=== PATIENT | female | born 1985 | race Caucasian/White ===

== ENCOUNTER 2018-07-29 12:12 | Inpatient (IN) | payer SELFPAY ==
[~2018-07-29] VITALS: Ht 180.3 cm; Wt 101.2 kg
--- NOTE | 2018-07-29 01:04 | NUR ---
BF AT THIS TIME. DENIES NEEDS AND PAIN AT THIS TIME. ICE PACK OFFER FOR PERINUEM, REFUSES AT THIS TIME. SIGNIFICANT OTHER AT BEDSIDE, SUPPORTIVE AND ATTENTIVE TO PT AND INFANT NEEDS. BED IN LOW POSITION WITH UPPER SIDE RAILS RAISED X2. CALL LIGHT AND PHONE WITHIN REACH. WILL CONTINUE TO MONITOR AND ASSIST PRN.
[2018-07-29] MEDS ORDERED: BENADRYL25 MG PO (12:53)
[2018-07-29 12:54] VITALS: BP 115/73; Ht 180.3 cm; Wt 101.2 kg
[2018-07-29 14:17] LABS: HEMATOCRIT 33.1 % (36.0-48.0); HEMOGLOBIN 11.6 g/dL (12-16); MCH 32.2 pg (26.0-34.0); MCV 91.9 fL (80.0-100.0); MEAN PLATELET VOLUME 9.5 fL (7.4-10.4); RBC 3.6 10x6/uL (4.00-5.40); RDW 13.5 % (11.5-14.5); WBC 10.4 10x3/uL (4.8-10.8)
--- NOTE | 2018-07-29 22:20 | NUR ---
CALLS VIA CL, STATES THAT SHE NEEDS TO VOID. EPIDURAL CATH UNHOOKED FROM PUMP AND STERILE CAP APPLIED. FULL ROM OF BLE NOTED, PT ABLE TO PLANT FEET ON BED AND PUSH BUTTOCKS OFF OF BED. PIV TO R WRIST SL. SAT ON EDGE OF BED WITH NO C/O DIZZINESS. STOOD AT BEDSIDE WITH NO C/O DIZZINESS. STEADY GAIT NOTED. AMBULATED WITH STANDBY ASSIST TO BATHROOM, VOIDED 900 MLS IN HAT, NO CLOTS NOTED. INSTRUCTED ON PERICARE USING BOTTLE WITH BETADINE RINSE. INSTRUCTED ON USE OF TUX PADS AND DERMAPLAST WITH UNDERSTANDING DEMONSTRATED. PANTIES AND PADS PROVIDED. LINEN AND GOWN CHANGED. BACK TO BED. SANDWICH TRAY PROVIDED PER PT REQUEST. DENIES ADDITIONAL NEEDS. SIGNIFICANT OTHER AT BEDSIDE, SUPPORTIVE AND ATTENTIVE TO PT AND HER NEEDS. BED PLACED IN LOW POSITION WITH UPPER SIDE RAILS RAISED X2. CALL LIGHT AND PHONE WITHIN REACH. WILL CONTINUE TO MONITOR AND ASSIST PRN.
--- NOTE | 2018-07-29 23:50 | NUR ---
C/O PAIN 3/10 CONSTANT PERINEAL PRESSURE. MOTRIN GIVEN PER ORDER. ICE WATER PROVIDED, PT INSTRUCTED ON MED. REINFORCED WITH PT THAT [place] FOR [place]ANNED BTL IN THE A.M. VERBALIZED UNDERSTANDING. VOIDED 750 MLS YELLOW URINE IN HAT, 2 QUARTER SIZED CLOTS NOTED. PERICARE DONE PER PT, GOWN CHANGED. LABOR BED OUT OF ROOM AND REGULAR BED PLACED IN ROOM. DENIES ADDITIONAL NEEDS. BED IN LOW POSITION WITH UPPER SIDE RAILS RAISED X2. CALL LIGHT AND PHONE WITHIN REACH. WILL CONTINUE TO MONITOR AND ASSIST PRN.
[2018-07-30] VITALS (12 sets, daily range): BP systolic 103–135; BP diastolic 56–76
--- NOTE | 2018-07-30 00:25 | NUR ---
PAIN REASSESSMENT COMPLETED. DENIES PAIN AT THIS TIME. REQUESTED UPDATE ON STATUS. NBN CALLED FROM ROOM, PT UPDATED ON INFANT. INSTRUCTED PT AND SIGNIFICANT OTHER ON CALLING NBN FROM ROOM PHONE, VERBALIZE UNDERSTANDING.
--- NOTE | 2018-07-30 02:18 | NUR ---
PT. AND ASKING FOR PAIN MED FOR ABD. CRAMPING. INFORMED OF TIME THAT MOTRIN WAS GIVEN AND WHEN IT WAS DUE AGAIN. INQUIRED IF PT. DESIRED A WARM BLANKET FOR HER ABD. PT. AGREEABLE. SAME DONE.
--- NOTE | 2018-07-30 03:15 | NUR ---
BONDING WITH INFANT. REPORTS THAT WARM BLANKET HELPED CRAMPING. DENIES NEEDS AT THIS TIME. BED IN LOW POSITION WITH UPPER SIDE RAILS RAISED X2. CALL LIGHT AND PHONE WITHIN REACH. WILL CONTINUE TO MONITOR AND ASSIST PRN.
--- NOTE | 2018-07-30 04:13 | NUR ---
ROUNDS MADE. PT GETTING BACK IN BED, STATES THAT SHE HAS BEEN TO THE BATHROOM. DENIES DIFFICULTY VOIDING. DENIES NEEDS. BED IN LOW POSITION WITH UPPER SIDE RAILS RAISED X2. CALL LIGHT AND PHONE WITHIN REACH. WILL CONTINUE TO MONITOR.
--- NOTE | 2018-07-30 05:09 | NUR ---
RESTING WITH EYES CLOSED IN SEMI FOWLERS POSITION. RESPIRATIONS REGULAR AND UNLABORED, NO S/S OF DISTRESS NOTED. BED IN LOW POSITION WITH UPPER SIDE RAILS RAISED X2. CALL LIGHT AND PHONE WITHIN REACH.
[2018-07-30 06:34] LABS: BASOPHILS 0.1 % (0-2); EOSINOPHILS 0.5 % (0-7); HEMATOCRIT 31.5 % (36.0-48.0); HEMOGLOBIN 10.9 g/dL (12-16); IMMATURE GRANULOCYTES 0.5 % (0-5); LYMPHOCYTES 20.1 % (15-50); MCH 31.6 pg (26.0-34.0); MCHC 34.6 g/dL (31.0-37.0); MCV 91.3 fL (80.0-100.0); MEAN PLATELET VOLUME 9.8 fL (7.4-10.4); MONOCYTES 6.7 % (2-11); NEUTROPHILS 72.1 % (40-80); PLATELET COUNT 195 10x3/uL (130-400); RBC 3.45 10x6/uL (4.00-5.40); RDW 13.4 % (11.5-14.5)
[2018-07-30 06:38] LABS: WBC 13.8 10x3/uL (4.8-10.8)
--- NOTE | 2018-07-30 07:00 | NUR ---
SBAR HANDOFF RECEIVED FROM KERVIN LOWRY RN.
--- NOTE | 2018-07-30 07:50 | NUR ---
VSS. SUPINE IN BED AFTER VOIDING AT 0746. SKIN WARM DRY AND PINK. FUNDUS FIRM AT UMBILICUS; RUBRA LOCHIA LIGHT. DENIES PASSAGE OF CLOTS VAGINALLY. RIGGS. ALERT/ORIENTED X 4. DENIES DIFFICULTY VOIDING. TO OR PER BED, ACCOMPANIED BY O.R. PERSONNEL. RIGHT WRIST SALINE LOCK INTACT WITHOUT SIGNS OF COMPLICATIONS. REMAINS NPO. S.O. AT BEDSIDE CARING FOR INFANT.
--- NOTE | 2018-07-30 13:08 | NUR ---
RECEIVED PATIENT FROM PACU VIA BED. NO SIGNS OF RESP DISTRESS OR OTHER DISTRESS NOTED OR REPORTED. SKIN WARM DRY AND PINK. ALERT AND ORIENTED X 4. BBS= AND CTA. BOWEL SOUNDS PRESENT. RUBRA LOCHIA LIGHT. FUNDUS FIRM AT 1FBU. RIGGS BUT STATES LEGS ARE STILL NUMB. IV R WRIST INFUSING LR AT 125 ML/HR PER IV PUMP NOW; NO SIGNS OF COMPLICATIONS AT SITE. ABD DSG TO UMBILICUS CDI.
--- NOTE | 2018-07-30 14:00 | NUR ---
SPOKE WITH DR Roslyn NEGRETE RE PATIENT DIET, PATIENT REQUESTING REGULAR DIET AND PATIENT REQUEST FOR ANALGESIA STRONGER THAN NSAID. NEW ORDER NOTED FOR PERCOCET AND REGULAR DIET BUT DR NEGRETE STATES SHE WILL ORDER IN COMPUTER HERSELF. ALSO, MD STATING PATIENT WILL NOT BE DISCHARGED TODAY. PATIENT INFORMED OF SAME AND GIVEN PUDDING, JELLO, CRACKERS AND PEANUT BUTTER UNTIL REGULAR DIET MAY BE OBTAINED. DENIES NAUSEA AFTER EATING PUDDING.
--- NOTE | 2018-07-30 14:50 | NUR ---
ASSISTED TO BATHROOM TO VOID. DENIES LIGHTHEADEDNESS, DIZZINESS, WEAK LEGS. VOIDED 600ML CLEAR PINK URINE WITH NO DIFFICULTY. WALKING IN ROOM AND CARVAJAL AFTERWARD. FOB ATTENTIVE AT BEDSIDE CARING FOR INFANT.
--- NOTE | 2018-07-30 14:55 | NUR ---
WALKING IN CARVAJAL APPROX 10 MIN THEN RETURNED TO BED IN ROOM 1274 FROM ROOM 1277 AND FELL RIGHT TO SLEEP.
--- NOTE | 2018-07-30 15:08 | NUR ---
DENIES URGE TO VOID. MOVING ABOUT IN BED EASILY; SITTING CROSS LEGGED WITH HEAD OF BED ELEVATED APPROX 40 DEGREES.
--- NOTE | 2018-07-30 16:22 | NUR ---
CONTINUES SLEEPING. RESP REG AND EVEN. REPORTS PAIN LESS. NO SIGNS OF COMPLICATIONS.
--- NOTE | 2018-07-30 16:40 | NUR ---
REMAINS STABLE. SITTING UP IN BED; ALERT AND ORIENTED X 4. STATES SHE IS FEELING MUCH BETTER AFTER WALK. REQUESTS HAMBURGER. FOB ATTENTIVE AT BEDSIDE.
--- NOTE | 2018-07-30 17:03 | NUR ---
REPORTS PAIN AT LEVEL 0. DENIES NAUSEA. ASSISTED FROM LYING TO SITTING FOR AMBULATION TO BATHROOM FOR VOID. DENIES DIZZINESS, LIGHTHEADEDNESS. REMAINS STABLE. VOIDED 500ML CLEAR PINK TINGED URINE WITH NO DIFFICULTY. DENIES PASSAGE OF GAS RECTALLY. RUBRA LOCHIA REMAINS LIGHT. FOB ATTENTIVE AT BEDSIDE.
--- NOTE | 2018-07-30 17:32 | NUR ---
UP AND ABOUT IN ROOM. CARING FOR INFANT. FOB ATTENTIVE AT BEDSIDE. EATING HAMBERGER. REMAINS STABLEE WITH NO SIGNS OF COMPLICATIONS.
--- NOTE | 2018-07-30 18:07 | NUR ---
TODD REG DIET WELL WITH NO COMPLAINTS OF NAUSEA
--- NOTE | 2018-07-30 18:07 | NUR ---
REMAINS STABLE WITH NO SIGNS OF COMPLICATIONS.
--- NOTE | 2018-07-30 18:37 | NUR ---
UP TO BATHROOM TO VOID. REMAINS STABLE. DENIES DIFFICULTY VOIDING. AMBULATING IN CARVAJAL AFTER VOIDING. FOB REMAINS AT BEDSIDE WITH INFANT.
--- NOTE | 2018-07-30 19:02 | NUR ---
AMBULATORY IN CARVAJAL WITH SIGNIFICANT OTHER. STEADY GAIT NOTED.
--- NOTE | 2018-07-30 19:44 | NUR ---
SITTING IN HIGH FOWLERS POSITION RUBBING ABD, FLINCHING NOTED. C/O PAIN /, CONSTANT BURNING AND STINGING "ON THE INSIDE" AND INTERMITTENT ABD CRAMPING. REQUESTS AND GIVEN PERCOCET PER ORDER. SPRITE PROVIDED PER REQUEST. DENIES ADDITIONAL NEEDS AT THIS TIME. BED IN LOW POSITION, UPPER SIDE RAILS RAISED X2. CALL LIGHT AND PHONE WITHIN REACH. WILL CONTINUE TO MONITOR AND ASSIST PRN.
--- NOTE | 2018-07-30 20:28 | NUR ---
SHIFT ASSESSMENT COMPLETED PER FLOWSHEET. VSS. REPORTS THAT PAIN REMAINS UNCHANGED AT 6-7/10. FENTANYL OFFERED PER ORDER, PT STATES THAT SHE REALLY DOESN'T WANT TO TAKE FENTANYL UNLESS PAIN IS UNBEARABLE "BECAUSE IT MADE ME EMOTIONAL YESTERDAY WHEN I TOOK IT AND I DON'T WANT TO BE TOO SLEEPY TO TAKE CARE OF MY BABY." STATES THAT SHE WANTS TO WAIT "A LITTLE LONGER AND SEE IF PAIN PILL WILL WORK." FUNDUS FIRM, MIDLINE AND U2 WITH SMALL AMT RUBRA LOCHIA, NO CLOTS PRESENT. DENIES DIFFICULTY VOIDING. BOWELS SOUNDS PRESENT AND ACTIVE X4 QUADRANTS. DENIES PASSING FLATUS. DRSG TO ABD CLEAN DRY AND INTACT WITH NO DRAINAGE NOTED. REFUSES SCD'S. ENCOURAGED TO AMBULATE TO STIMULATE PASSING FLATUS, VERBALIZES UNDERSTANDING. REFUSES SCD'S. REPORTS THAT SHE IS PERFORMING PERICARE WITH EACH VOID. SANDWICH TRAY, PUDDING, AND ICE WATER PROVIDED PER REQUEST. DENIES ADDITIONAL NEEDS. BED IN LOW POSITION WITH UPPER SIDE RAILS RAISED X2. CALL LIGHT AND PHONE WITHIN REACH. WILL CONTINUE TO MONITOR.
--- NOTE | 2018-07-30 21:17 | NUR ---
FOLLOW UP ON PAIN ASSESSMENT COMPLETED, REPORTS THAT PAIN REMAINS 6-10/19. REPORTS THAT SHE FEELS PAIN IS R/T TO NEED PASS FLATUS. STATES THAT SHE FEELS LIKE SHE NEEDS TO "PASS GAS BUT CAN'T" REQUESTING MEDICATION TO HELP WITH PASSING FLATUS, WILL NOTIFY DR. NEGRETE.
--- NOTE | 2018-07-30 21:22 | NUR ---
DR. NEGRETE NOTIFIED OF PAIN ASSESSMENT, PT REFUSAL OF FENTANYL, AND REQUEST FOR GAS MEDICATION. PER DR. NEGRETE SHE WILL PLACE ORDERS.
--- NOTE | 2018-07-30 21:26 | NUR ---
AMBULATORY IN CARVAJAL, STEADY GAIT NOTED.
--- NOTE | 2018-07-30 21:38 | NUR ---
NEW ORDER FOR 30 ML PO LIQUID SIMETHICONE NOTED. NOT AVAILABLE IN [facility], GLOBAL FIND DONE AND MED AVAILABLE IN ER, OR, AND OUTPT [facility]. [employer] NOTIFIED AND WILL BRING TO UNIT. PT UPDATED ON NEW ORDER AND THAT THIS RN WILL ADMINISTER WHEN [employer] BRINGS TO UNIT. VERBALIZES UNDERSTANDING AND APPRECIATION.
--- NOTE | 2018-07-30 22:01 | NUR ---
MYLICON GIVEN. INSTRUCTED ON MEDICATION, VERBALIZES UNDERSTANDING AND DENIES NEEDS. ENCOURAGED TO CONTINUE AMBULATING ON UNIT AND IN ROOM, VERBALIZES UNDERSTANDING.
--- NOTE | 2018-07-30 22:28 | NUR ---
MOTRIN OFF SCHEDULE ON EMAR, DUE AT THIS TIME, OFFERED AND REFUSED BY PT. STATES THAT SHE WILL TAKE IT WITH HER PERCOCET "BECAUSE WHEN I TOOK IT THAT WAY EARILER IT HELPED MY PAIN MORE." REPORTS THAT SHE HAS PASSED FLATUS AND THAT HAS RELEIVED DISCOMFORT ALSO. ICE WATER PROVIDED. DENIES ADDITIONAL NEEDS.
--- NOTE | 2018-07-30 23:29 | NUR ---
AMBULATORY TO DESK, C/O PAIN 10/19, INCISIONAL BURNING AND STINGING AND "A LITTLE CRAMPING." REQUESTS MOTRIN AND PERCOCET TOGETHER AT THIS TIME. GIVEN PER REQUEST. ICE PACK PROVIDED. BED IN LOW POSITION WITH UPPER SIDE RAILS RAISED X2. CALL LIGHT AND PHONE WITHIN REACH.
--- NOTE | 2018-07-31 01:50 | NUR ---
PT. LYING ON BACK WITH HOB AT 30 DEGREES HOLDING AND BOTH PT. AND ASLEEP. SOFTLY SPOKE TO PT. AND SHE AWAKENED STARTLED. PT. IMMEDIATELY STATES THAT SHE DID NOT MEAN TO GO TO SLEEP AND THEN ASKED, "IS HE ASLEEP" REFERRING TO FOB AND LOOKED AND HE WAS ASLEEP. ASKED PT. IF THIS NURSE COULD PUT IN CRIB AT BEDSIDE. PT. AGREEABLE AND AGAIN APOLOGIZES FOR GOING TO SLEEP. REASSURED PT. ALL WAS WELL AND CRIB COULD BE PLACED CLOSE TO BED SO SHE COULD OBSERVE INFANT. PT. AGREEABLE.
--- NOTE | 2018-07-31 03:24 | NUR ---
ROUNDS MADE. PT RESTING IN SEMI FOWLERS POSITION WITH EYES CLOSED. RESPIRATIONS REGULAR AND UNLABORED, NO S/S OF DISTRESS NOTED. WILL CONTINUE TO MONITOR AND ASSIST PRN. BED IN LOW POSITION WITH UPPER SIDE RAILS RAISED X2. CALL LIGHT AND PHONE WITHIN REACH. WILL CONTINUE TO MONITOR AND ASSIST PRN. INFANT RESTING IN OPEN CRIB AT BEDSIDE.
[2018-07-31 04:47] VITALS: BP 105/60
--- NOTE | 2018-07-31 04:47 | NUR ---
VSS. C/O ABD CRAMPING 10/19, PERCOCET GIVEN PER REQUEST AND ORDER. ICE PACK PROVIDED PER PT REQUEST. ICE WATER GIVEN. FUNDUS REMAINS FIRM, MIDLINE AND U2 WITH SMALL AMT RUBRA LOCHIA, NO CLOTS NOTED. DRGS REMAINS CLEAN, DRY, AND INTACT WITH NO DRAINAGE. BED IN LOW POSITION WITH UPPER SIDE RAILS RAISED X2. CALL LIGHT AND PHONE WITHIN REACH. WILL CONT TO MONITOR AND ASSIST PRN.
--- NOTE | 2018-07-31 05:29 | NUR ---
INFANT. PAIN DECREASED TO 3/10.
--- NOTE | 2018-07-31 06:25 | NUR ---
APPLYING MAKE UP. REPORTS TO RN THAT SHE SHOWERED. DENIES NEEDS AT THIS TIME.
--- NOTE | 2018-07-31 06:54 | NUR ---
MOTRIN GIVEN PER ORDER. 07/20 ABD CRAMPING. ICE WATER PROVIDED. DENIES ADDITIONAL NEEDS. BED IN LOW POSITION WITH UPPER SIDE RAILS RAISED X2. CALL LIGHT AND PHONE WITHIN REACH. WILL CONTINUE TO MONITOR AND ASSIST PRN.
[2018-07-31 08:50] VITALS: BP 102/60
--- NOTE | 2018-07-31 08:50 | NUR ---
AM ASSESSMENT COMPLETED CHARTED ON FLOWSHEET. PT FINISHING AND HAS ALREADY SHOWERED AND IS DRESSED IN HER CLOTHING. VSS AND CHARTED ON FLOWSHEET, FUNDUS FIRM AT U/1 WITH LIGHT BLEEDING, SHE DENIES CLOTS WITH VOIDS. RATES PAIN AT 7/10 AND REQUEST PERCOCET. SHERIE PADS AND MESH BRIEFS PLACED IN BATHROOM REQUESTED. PT ASK WHEN MD WILL MAKE ROUNDS, STATES SHE IS READY TO BE DISCHARGED, STATES UNDERSTANDING THAT IT WILL BE THIS AM BUT DO NOT KNOW SPECIFIC TIME. SALINE LOCK REMOVED INTACT FROM RIGHT WRIST. SIDE RAILS UP X 2, CALL LIGHT IN REACH AND IN CRIB AT BEDSIDE.
--- NOTE | 2018-07-31 09:00 | NUR ---
PERCOCET 5/325MG GIVEN SCANNED TO EMAR,
--- NOTE | 2018-07-31 09:45 | NUR ---
PAIN REASSESSMENT, PT RATES AT 3/10 AND IS WALKING AROUND ROOM. DENIES NEEDS AT THIS TIME.
[2018-07-31] MEDS ORDERED: IBUPROFEN800 MG PO (10:28)
[2018-07-31] MEDS ORDERED: PERCOCET 5-3251 TAB PO (10:28)
--- NOTE | 2018-07-31 12:45 | NUR ---
CALLED TO ROOM, PT FEEDING AND IS REQUESTING PAIN MED. NURSERY NURSE TO ROOM FOR DISCHARGE TEACHING
--- NOTE | 2018-07-31 12:56 | NUR ---
PERCOCET 5 MG GIVEN FOR RELIEF OF 8/10 UMBILICAL INCISIONAL PAIN. PREPARING TO GO HOME. NO ADDITIONAL REQUESTS. INFANT AND FOB IN ROOM.
--- NOTE | 2018-07-31 13:28 | NUR ---
PT AGREEABLE WITH DISCHARGE, SHE ASK ABOUT DISCHARGE MEDS AND UNDERSTANDS SHE WILL BE PROVIDED WITH WRITTEN SCRIPT AT TIME OF DISCHARGE. ALSO EXPLAINED THAT DUE TO RUBELLA TITER IT WAS INDICATED SHE SHOULD RECEIVED MMR PRIOR TO DISCHARGE BUT SHE QUESTIONS IF SHE HAS TO TAKE INJECTION, REASSURED HER THAT SHE HAS THE RIGHT TO REFUSE. SHE HAS DECIDED AGAINST MMR TODAY.
--- NOTE | 2018-07-31 13:30 | NUR ---
VERBAL AND WRITTEN DISCHARGE INSTRUCTIONS GONE OVER, PT IS GIVEN WRITTEN SCRIPT FOR PERCOCET 5/325MG. DENIES ANY QUESTIONS OR CONCERNS ABOUT DISCHARGE. WILL CALL WHEN READY FOR WHEELCHAIR.
--- NOTE | 2018-07-31 13:40 | NUR ---
INFANT SECURED IN CARRIER AND HAS BEEN VERIFIED BY NURSERY NURSE. PT TAKEN OUT BY WHEELCHAIR WITH INFANT. HOME BY PRIVATE CAR WITH FAMILY.
== END 2018-07-31 13:40 | disposition home or self-care (01) | DRG 798 ==
LOC: D.LD 12:12
PROVIDERS: ADMIT Obstetrics & Gynecology; ATTEND Obstetrics & Gynecology
PROC: 10E0XZZ Delivery of Products of Conception, External Approach (ICD-10-PCS; principal; 2018-07-29)
PROC: 0UB70ZZ Excision of Bilateral Fallopian Tubes, Open Approach (ICD-10-PCS; 2018-07-30 07:04)
DX: O69.81X0 Labor and delivery complicated by cord around neck, without compression, not applicable or unspecified (principal); Z37.0 Single live birth; Z3A.38 38 weeks gestation of pregnancy; O90.81 Anemia of the puerperium; O99.214 Obesity complicating childbirth; Z30.2 Encounter for sterilization; Z67.91 Unspecified blood type, Rh negative